=== PATIENT | female | born 1985 | race Two or more races ===

== ENCOUNTER 2022-03-10 14:48 | Outpatient (CLI) | payer OTHER, SELFPAY ==
[2022-03-10 10:45] LABS: Albumin* 4.5 g/dL (3.3-5.0)
[2022-03-10 10:46] LABS: Chloride* 106 mmol/L (96-114); Potassium* 4.3 mmol/L (3.6-5.1); Sodium* 140 mmol/L (135-149)
[2022-03-10 10:48] LABS: Bilirubin Total* 0.8 mg/dL (0.1-1.5); Carbon Dioxide* 28 mmol/L (20-32); Cholesterol* 155 mg/dL (90-199); Creatinine* 0.8 mg/dL (0.5-1.5); Estimated Glomerular Filt Rate 96 ml/min
[2022-03-10 10:49] LABS: Alanine Aminotransferase* 15 U/L (4-35); Alkaline Phosphatase* 94 U/L (40-150); Aspartate Amino Transferase* 22 U/L (12-35); Blood Urea Nitrogen* 15 mg/dL (5-24); Calcium* 9.3 mg/dL (8.4-10.6); Glucose* 88 mg/dL (60-115); Total Protein* 7.9 g/dL (6.0-8.3); Triglycerides* 44 mg/dL (40-149)
[2022-03-10 10:50] LABS: HDL Cholesterol* 65 mg/dL (>=50); LDL Cholesterol Calculated 81 mg/dL (<100)
[2022-03-14 14:36] LABS: HCG Quantitative* < 2.39 mIU/mL
== END 2022-03-10 14:49 | disposition home or self-care (01) ==
PROVIDERS: PCP Physician Assistant Medical; Visit Provider Family Medicine
DX: Z01.419 Encounter for gynecological examination (general) (routine) without abnormal findings (principal); N91.2 Amenorrhea, unspecified; Z13.6 Encounter for screening for cardiovascular disorders
CPT/HCPCS: 80053; 80061; 84702

== ENCOUNTER 2023-10-01 08:50 | Outpatient (CLI) | payer OTHER, SELFPAY | END 2023-10-01 08:51 | disposition home or self-care (01) | LOC: NFLDREF 12:58 | PROVIDERS: PCP Family Medicine; Referring Provider Family Medicine; Visit Provider Family Medicine | DX: Z00.00 Encounter for general adult medical examination without abnormal findings (principal); E78.5 Hyperlipidemia, unspecified; Z13.9 Encounter for screening, unspecified | CPT/HCPCS: 80053; 80061 ==

== ENCOUNTER 2023-10-08 12:52 | Outpatient (CLI) | payer OTHER, SELFPAY ==
--- NOTE | 2023-10-08 13:00 | CRLHL7_ITS ---
For Patients: As a result of the Century Cures Act, medical imaging exams and procedure reports are released immediately into your electronic medical record. You may view this report before your referring provider. If you have questions, please contact your health care provider. BILATERAL SCREENING MAMMOGRAM WITH COMPUTER-AIDED DETECTION AND TOMOSYNTHESIS TECHNIQUE: CC and MLO views were obtained. These mammographic images have been obtained using full-field digital technique. These mammographic images were interpreted with the benefit of computer-aided detection. Breast Tomosynthesis was used in this interpretation. COMPARISON FILM: Baseline. FINDINGS: The breasts are heterogeneously dense, which may obscure small masses IMPRESSION: There is no radiographic evidence for malignancy. ASSESSMENT: BI-RADS Category 1: Negative RECOMMENDATION: Routine screening mammogram in 1 year. A lay language report of this examination will be provided to the patient. Erick Hughes M.D. Diagnostic Radiologist [email or web address] Transcribed: 2:41 p.dg [email or web address]/Dictated by: Erick Hughes MD @ 10/08/2023 1:59:00 PM (Electronically Signed)
== END 2023-10-08 12:53 | disposition home or self-care (01) ==
LOC: MAMMO 12:53
PROVIDERS: PCP Family Medicine; Visit Provider Family Medicine
DX: Z12.31 Encounter for screening mammogram for malignant neoplasm of breast (principal); R92.2 Inconclusive mammogram
CPT/HCPCS: 77063; 77067

== ENCOUNTER 2024-08-28 10:57 | Outpatient (CLI) | payer BC, SELFPAY | END 2024-08-28 10:58 | disposition home or self-care (01) | PROVIDERS: PCP Family Medicine; Visit Provider Family Medicine | DX: R00.2 Palpitations (principal) | CPT/HCPCS: 80048; 84443 ==

== ENCOUNTER 2024-09-03 13:03 | Outpatient (CLI) | payer BC, SELFPAY | END 2024-09-03 13:04 | disposition home or self-care (01) | LOC: RAD 13:04 | PROVIDERS: PCP Family Medicine; Visit Provider Family Medicine | DX: R00.2 Palpitations (principal) | CPT/HCPCS: 93306 ==

== ENCOUNTER 2024-12-03 14:23 | Outpatient (CLI) | payer BC, SELFPAY ==
--- NOTE | 2024-12-03 14:40 | CRLHL7_ITS ---
For Patients: As a result of the Cures Act, medical imaging exams and procedure reports are released immediately into your electronic medical record. You may view this report before your referring provider. If you have questions, please contact your health care provider. INDICATION: BILATERAL SCREENING MAMMOGRAM, ASYMPTOMATIC 39 Y/O FEMALE COMPARISON: 10/08/2023 TECHNIQUE: Digital mammogram in CC and MLO projections including computer-aided detection (CAD) and tomosynthesis. BREAST COMPOSITION: The breasts are heterogeneously dense, which may obscure small masses. FINDINGS: No suspicious findings. ASSESSMENT: BI-RADS 1 Negative RECOMMENDATION: Annual screening mammogram. A lay language report of this examination will be provided to the patient. Dictated by: Erick Hughes MD @ 12/04/2024 12:19:37 (Electronically Signed)
== END 2024-12-03 14:24 | disposition home or self-care (01) ==
LOC: MAMMO 14:24
PROVIDERS: PCP Family Medicine; Visit Provider Family Medicine
DX: Z12.31 Encounter for screening mammogram for malignant neoplasm of breast (principal); R92.333 Mammographic heterogeneous density, bilateral breasts
CPT/HCPCS: 77063; 77067